=== PATIENT | female | born 1940 | race Asian ===

== ENCOUNTER → 2018-01-06 | Outpatient (CLI) | payer OTHER ==
[~2018-01-06] VITALS: Ht 152.4 cm; Wt 58.2 kg
[~2018-01-06] MED LIST: ASPIR 8181 MG PO; ATENOLOL 25 MG25 M1 PO; FISH OIL 1,001000 M2 PO; FOSAMAX 70 MG T70 MG PO; LINZESS290 MCG PO; LIPITOR80 MG PO; MULTIVITAMINS PO; NORVASC5 MG PO; PRINIVIL40 MG PO; TUMS PO; TYLENOL EXTRA500 MG PO; VITAMIN D1000 UNI1 PO
--- NOTE | ~2018-01-06 | HPC ---
[facility] [address] [address] PAIN MANAGEMENT CONSULTATION Name: GEORGIANA GONZALEZ AE Room #: REG [facility] [id number] Admission: 01/06/18 Attend Phys: Angel Amos DO Discharge: Date of : 38 Report #: [id number] THIS REPORT FOR: //name// CC: Angel Mclaughlin DATE OF SERVICE: 01/06/2018 REFERRING PHYSICIAN: Nurse practitionerVaishnavi. CHIEF COMPLAINT: Low back pain, bilateral buttock and posterolateral thigh pain. HISTORY OF PRESENT ILLNESS: As you know, the patient is a 77-year-old female who reports longstanding history of low back pain has progressively worsened over a period of years. She indicates pain began about 6 years ago, was tolerable and treated with umpd-uix-rioeeum medications and decreasing activity. She states that over the past 3 months starting in September 2017, her pain become more intense. She sought evaluation through her primary care physician who referred the patient to Orthopedics. She saw Dr. Joe Salomon for evaluation. It was determined that her symptoms were likely due to lumbar radiculopathy. She was sent for MRI imaging and findings were such, the patient was then referred to Dr. Mills's office for evaluation for possible surgical intervention. The patient was seen by nurse practitioner, Lyubov Marte on 12/22/2017 as a referral from Dr. Joe Salomon. They reviewed the patient's case and determined that she does have lumbar radiculopathy secondary to progressively worsening spinal stenosis. She was referred at that point to our clinic to trial a lumbar epidural injections under fluoroscopic guidance and to address other potential treatment options for the findings of her MRI, which shows L2-L3 compression fractures that are well healed but do have retropulsion in the posterior portion on the L2 level causing moderate spinal stenosis and also noted a grade 1 spondylolisthesis of L4 and L5 with severe apophyseal joint disease causing moderate central canal stenosis. The patient was deemed a nonsurgical candidate at this time as they request the patient trial more conservative treatment options. The patient today reports the pain is constant, describes pain as aching, throbbing with intermittent numbness and tingling. Places current pain score 10/10, daily average at 10/10, worst pain has been is 10/10. The patient states the pain is exacerbated with recent physical therapy. The pain has been improved with ibuprofen but has recently been changed over to Aleve due to concerns of bleeding issues that is being evaluated by GI. She has been referred to our service to discuss potential treatment options for lumbar radicular symptoms secondary [place] [address] PAIN MANAGEMENT CONSULTATION Name: GEORGIANA GONZALEZ AE Room #: REG NAYE Forte#: [id number] Admission: 01/06/18 Attend Phys: Angel Amos DO Discharge: Date of : 38 Report #: [id number] PAST MEDICAL HISTORY: 1. Bilateral hip pain. 2. Hypertension. 3. Chronic anemia. 4. Osteoarthritis. 5. Osteoporosis. 6. Coronary artery disease, status post stenting. PAST SURGICAL HISTORY: 1. Cardiac stents. 2. Thyroid surgery. 3. Facelift. SOCIAL HISTORY: The patient denies tobacco use. She denies IV or illicit drug use. She is working as a hairdresser. She is not receiving workmen's compensation. She is accompanied by a family friend, present in room today. She is not in litigation in regards to her pain. REVIEW OF SYSTEMS: Positive only for eye disease, wearing corrective eyewear, blurred and double vision; constipation; rectal bleeding; nocturia and low back pain. All other review of systems negative per 12-point review of systems other than those listed in history of present illness. PAIN SCORE: Pain impact score 65/70 indicating near complete interference of daily activities secondary to pain. ALLERGIES: No known drug allergies. CURRENT MEDICATIONS: Linzess 290 mcg once a day, acetaminophen 500 mg 3 times a day, omega-3 fish oil 1 tab per day, aspirin 81 mg per day, multivitamin 1 tab per day, cholecalciferol 1000 units per day, calcium carbonate 500 mg 2 tabs per day, alendronate 70 mg once a week, atorvastatin 80 mg per day, lisinopril 40 mg per day, atenolol 25 mg per day and Norvasc 5 mg per day. IMAGING DATA: MRI lumbar spine obtained on 12/02/2017 shows L2 vertebral compression fracture with retropulsion into the anterior portion of the cord causing a moderate spinal stenosis. There is a noted compression fracture at L3 with no retropulsion with marked superior changes, well-healed at L4-L5. There is grade 1 spondylolisthesis with severe apophyseal joint disease, moderate central canal stenosis. PHYSICAL EXAMINATION: VITAL SIGNS: Blood pressure 170/67, pulse 59 and respiratory rate 16 and unlabored. The patient is 100% on room air. Height 5 feet tall, weight 128.4 pounds and BMI calculated 25.1. [address] [address] PAIN MANAGEMENT CONSULTATION Name: GEORGIANA GONZALEZ AE Room #: ZACKARY Forte#: [id number] Admission: 01/06/18 Attend Phys: Angel Amos DO Discharge: Date of : 38 Report #: [id number] GENERAL: Well-developed, well-nourished, well-hydrated 77-year-old female appearing her stated age, placing current pain score 10/10. HEENT: Normocephalic and atraumatic. Pupils equal, round and reactive to light. Extraocular muscles are intact. Sclerae nonicteric without injection. NEUROLOGICAL: Cranial nerves 2 through 12 grossly intact. Speech is fluent. The patient deemed a fair historian. LUNGS: Clear. No wheeze, rhonchi or rales. CARDIOVASCULAR: Regular. No appreciable gallop and no rub. ABDOMEN: Soft, nontender and nondistended. Normoactive bowel sounds. EXTREMITIES: Show no clubbing, no cyanosis and no edema. MUSCULOSKELETAL: Lower extremity strength appears equal and symmetrical, 5/5. She has intact to light touch from L1 through S2 dermatomes. Seated straight leg raising negative. Supine straight leg raising positive. Tommie's test negative. Modified Gaenslen's positive for axial low back pain. Ankle clonus negative. Babinski is negative. There is some palpatory tenderness over the facet joints of the lower lumbar spine and SI joints bilaterally with deep palpation. Lumbar provocation testing is met with mild increase in pain, axial in nature. ASSESSMENT: 1. Symptomatic lumbar radiculopathy. 2. Spinal stenosis of lumbar spine. 3. Displacement of lumbar intervertebral disk with radiculopathy. 4. Lumbosacral spondylosis with radiculopathy. 5. Lumbar degeneration. 6. Chronic intractable pain. PLAN: 1. The patient has been referred to our service by [facility], Lyubov Marte, nurse practitioner to evaluate the patient for suspected lumbar radiculopathy secondary to spinal stenosis. The patient and I discussed at length the diagnosis of lumbar radiculopathy. We discussed spinal stenosis and we correlated her findings to her MRI. This conversation took 22 minutes of time. After this discussion of the findings of the MRI and how they correlate with her physical exam and the findings noted from the Neurosurgery team, we discussed treatment options we have available from a pain management standpoint. The following was discussed with the patient today. We discussed physical therapy, stretching exercises and core strengthening. The patient states she has been in physical therapy and had to discontinue due to increased pain. Certainly, this can be adjusted to address her ongoing pain issues and minimize the pain during physical therapy. We discussed medication management with addition of a neuropathic pain medication and rotation of nonsteroidal anti-inflammatories as we await GI workup for chronic anemia and guaiac positive stools. We discussed epidural injections for which the patient was referred to our clinic to address lumbar radicular symptoms. We discussed [facility] [address] [place] [address] PAIN MANAGEMENT CONSULTATION Name: GEORGIANA GONZALEZ Room #: REG CL Reanna#: [id number] Admission: 01/06/18 Attend Phys: Angel Amos DO Discharge: Date of : 38 Report #: [id number] spinal cord stimulator therapy and surgical options. After reviewing the risks and benefits of all the proposed treatment options, the patient chose to undergo lumbar epidural injection under fluoroscopic guidance. The patient was advised risks and benefits of a lumbar epidural injection. These risks include but are not necessarily limited to bleeding, bruising, infection, worsening pain, no relief of pain, also risk of temporary or permanent muscle weakness, temporary or permanent nerve damage, possible paralysis and . The patient states understood and wished to proceed. 2. No medication changes made at today's visit. The patient will continue current medical therapy as previously prescribed. 3. We will see the patient back in followup visit in approximately 3 weeks. At that time, review the efficacy of today's epidural injection and determine if next in the series of epidural injection might be recommended. 4. We wish to thank Lyubov Marte, nurse practitioner for the referral of the patient to our clinic. We will keep you apprised of her response to treatment as we address lumbar radicular symptoms. Again, we wish to thank you for the opportunity to see this patient in consultation. PROCEDURE NOTE DESCRIPTION OF PROCEDURE: L5-S1 right paramedian epidural steroid injection under fluoroscopic guidance. This is the first procedure of the first series that the patient is undergoing. After obtaining written consent, the patient was taken back to the fluoroscopy suite, placed in a prone position with pillow under the abdomen to decrease lumbar lordosis. The skin overlying the lumbosacral area was then prepped and draped in aseptic fashion. The L5-S1 vertebral interspace was then identified by AP fluoroscopy. The skin and subcutaneous tissue overlying the target site of injection was anesthetized with 3 mL 1% lidocaine. A 20-gauge 3-1/2 inch Tuohy needle was then advanced under fluoroscopic guidance towards the epidural space using a right paramedian approach. The epidural space was identified using loss of resistance to air technique. After negative aspiration for heme or cerebrospinal fluid, a total of 0.6 mL of Omnipaque was injected. A lumbar epidurogram was confirmed using both AP and lateral fluoroscopy. After negative aspiration for heme or cerebrospinal fluid, 5 mL of a solution containing 2 mL 40 mg per mL, 80 mg total triamcinolone, 3 mL lidocaine 1% was injected in increments. Contrast spread was noted posterior epidural space. The needle was then retracted approximately half way and needle tract flushed with 1 mL of 1% lidocaine. Needle was then removed. There were no apparent sensory or motor deficits in the lower extremity following the procedure. A sterile bandage was placed over the injection site. [address] [address] PAIN MANAGEMENT CONSULTATION Name: GEORGIANA GONZALEZ AE Room #: REG [facility]ITALR[facility]zRamez#: [id number] Admission: 01/06/18 Attend Phys: Angel Amos DO Discharge: Date of : 38 Report #: [id number] The heart rate, pulse, oximetry and blood pressure were continuously monitored after the procedure. There were no apparent complications. The patient tolerated the procedure well and was carefully escorted to the recovery room in stable condition. There were no apparent complications. After meeting discharge criteria, the patient was then discharged home. <ELECTRONICALLY SIGNED> By: Angel Amos DO 01/07/18 1207 0921 120 Angel Amos DO /nt
[2018-01-06 13:44] VITALS: BP 170/67
== END | disposition home or self-care (01) ==
LOC: PAIN 08:46
DX: M51.16 Intervertebral disc disorders with radiculopathy, lumbar region (principal); M48.061 Spinal stenosis, lumbar region without neurogenic claudication; M47.27 Other spondylosis with radiculopathy, lumbosacral region; G89.29 Other chronic pain; I10 Essential (primary) hypertension; I25.10 Atherosclerotic heart disease of native coronary artery without angina pectoris; D50.0 Iron deficiency anemia secondary to blood loss (chronic); M19.90 Unspecified osteoarthritis, unspecified site; M81.0 Age-related osteoporosis without current pathological fracture; Z95.5 Presence of coronary angioplasty implant and graft; Z98.890 Other specified postprocedural states; Z79.899 Other long term (current) drug therapy; Z79.82 Long term (current) use of aspirin

== ENCOUNTER → 2018-01-19 | Outpatient (CLI) | payer OTHER ==
[~2018-01-19] VITALS: Ht 152.4 cm; Wt 56.7 kg
[~2018-01-19] MED LIST changes: +ALEVE220 MG PO; +ONE-A-DAY WOMENS PO
--- NOTE | ~2018-01-19 | PATH ---
[facility] [address] [address] PATHOLOGY RPT PROCEDURE Name: GEORGIANA ANDERSEN Room #: REG [facility] DEVENSQue.#: [id number] Admission: 01/19/18 Date of : 38 Discharge: Report #: [id number] Path Case #: [id number] [facility] Accession Number: [id number] . 01 Material submitted: . PART A: BX OF GASTRITIS PART B: BX OF DISTAL ESOPHAGUS . 01 Clinical history: . Anemia, blood in stool, esophagitis, gastritis, history of heme positive stool, hiatal hernia, history H. pylori . 02 Diagnosis: A. Gastric mucosa, gastritis, rule out H. pylori, endoscopic biopsy: - Mild chronic gastritis with features of reactive gastropathy. - Negative for intestinal metaplasia or atrophy. - Negative for Helicobacter pylori (properly controlled immunohistochemical stain performed). . B. Gastroesophageal mucosa, distal esophagus, rule out Busch's, endoscopic biopsy: - Gastric cardia-type mucosa with moderate chronic inflammation and reactive changes; negative for intestinal metaplasia or dysplasia. - Squamous mucosa with mild esophagitis. . (IUV:patient experience coordinator; 01/20/2018) MBR/01/20/2018 . 02 Electronically signed: . Sarah Lopez MD, Pathologist NPI- [id number] . 01 Gross description: . A. The specimen is received in formalin, labeled "Georgiana Andersen Ae, BX gastritis, rule out H. pylori", are three fragments of jin soft tissue 0.2 cm, 0.4 cm and a 0.6 cm in greatest dimension, entirely submitted in A1. . B. The specimen is received in formalin, labeled "Georgiana Andersen Ae, BX of distal esophagus, rule out Busch's", is a jin-tony, soft tissue, 0.5 cm in greatest dimension, entirely submitted in B1. (SWS; 01/19/2018) SHS/SHS . 02 Pathologist provided ICD-10: K29.50, K20.9 . 02 CPT . [address] [address] PATHOLOGY RPT PROCEDURE Name: GEORGIANA ANDERSEN AE Room #: REG [facility] BhavinRamez#: [id number] Admission: 01/19/18 Date of : 38 Discharge: Report #: [id number] Path Case #: [id number] Specimen Comment: A courtesy copy of this report has been sent to Specimen Comment: [phone], , . Specimen Comment: Report sent to ,DR DAVALOS / DR BALL Performed at: [address], [place] [id number] MD Иван Dunn MD Phone: [phone] Performed at: [address] [id number] MD Sarah Lopez MD Phone: [phone]
--- NOTE | ~2018-01-19 | P ---
[facility] [place] [address] [place] [address] PROCEDURE REPORT Name: GEORGIANA GONZALEZ AE Room #: REG [facility]ERV[facility]#: [id number] Admission: 01/19/18 Attend Phys: Yonathan Greenwood Discharge: Date of : 38 Report #: [id number] THIS REPORT FOR: //name// CC: Yonathan Mclaughlin DATE OF SERVICE: 01/19/2018 PROCEDURE PERFORMED: Upper endoscopy with biopsies. HISTORY OF PRESENT ILLNESS: The patient is a 77-year-old female with a history of anemia who was seen in the office 12/04/2017. Hemoglobin in November was 10.9. She denies any obvious bright red blood per rectum. She underwent an EGD and colonoscopy by myself in 2015. Gastritis was noted and was H. pylori positive. She was treated with Prevpac. She also had two benign polyps removed on colonoscopy and diverticulosis. She does have intermittent heartburn symptoms. She also has chronic constipation and is currently taking Linzess and MiraLax with better control. She had been taking Motrin on a regular basis. She denies any dysphagia or odynophagia. We proceeded with Hemoccult testing of her stools, which 2/3 were positive. Plan is for upper endoscopy. DESCRIPTION OF PROCEDURE: The risks and benefits of the procedure were explained to the patient, those risks including but not limited to bleeding, perforation, the risk of sedation. She understood these risks and gave informed consent. Sedation was given using propofol per Anesthesia. Next, using a standard Olympus upper endoscope, the scope was placed in the patient's mouth and advanced under direct vision through the esophagus, stomach and into the second portion of the duodenum. The upper and mid esophagus was normal in appearance. At the GE junction, there was evidence of grade B erosive esophagitis with possible short segment of Busch's was noted. Biopsies were obtained. Upon entering the stomach, a small hiatal hernia was noted. Overall, the gastric mucosa was normal in the fundus and body. There was a mild gastritis with several erosions in the gastric antrum. No evidence of bleeding. Biopsies were obtained due to gastritis and a previous history of H. pylori. The pylorus was normal and patent. The duodenal bulb, first and second portion were all normal. The scope was then withdrawn and the procedure terminated. The patient tolerated the procedure well. IMPRESSION: 1. Grade B erosive esophagitis. 2. 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 3. Small hiatal hernia. 4. Gastritis with gastric erosions. No evidence of bleeding. [address] [address] PROCEDURE REPORT Name: GEORGIANA GONZALEZ AE Room #: REG [facility] Reanna#: [id number] Admission: 01/19/18 Attend Phys: Yonathan Greenwood Discharge: Date of : 38 Report #: [id number] RECOMMENDATIONS: 1. Await biopsy results. 2. Recommend daily PPI therapy. 3. Continue to monitor hemoglobin. If anemia does not improve after PPI therapy, consider M2 capsule for further evaluation of the small bowel. Thank you for allowing me to participate in her care. <ELECTRONICALLY SIGNED> By: Yonathan Gandhi MD 01/20/18 1139 1017 1742 Yonathan Gandhi MD /nt
== END | disposition home or self-care (01) ==
LOC: GI 07:20
DX: K29.50 Unspecified chronic gastritis without bleeding (principal); K22.10 Ulcer of esophagus without bleeding; K44.9 Diaphragmatic hernia without obstruction or gangrene; I10 Essential (primary) hypertension; E78.5 Hyperlipidemia, unspecified; D64.9 Anemia, unspecified; Z86.010 Personal history of colon polyps; Z87.19 Personal history of other diseases of the digestive system; Z95.5 Presence of coronary angioplasty implant and graft; Z86.19 Personal history of other infectious and parasitic diseases; K21.9 Gastro-esophageal reflux disease without esophagitis; Z98.41 Cataract extraction status, right eye; Z98.890 Other specified postprocedural states; Z79.899 Other long term (current) drug therapy; Z79.82 Long term (current) use of aspirin
CPT/HCPCS: 62110; 62900

== ENCOUNTER → 2018-02-17 | Outpatient (CLI) | payer OTHER ==
[~2018-02-17] VITALS: Ht 172.7 cm; Wt 59.1 kg
--- NOTE | ~2018-02-17 | HPC ---
[facility] [address] [place] [address] PAIN MANAGEMENT CONSULTATION Name: GEORGIANA GONZALEZ AE Room #: REG [facility]ENTERRamez.#: [id number] Admission: 02/17/18 Attend Phys: Angel Amos DO Discharge: Date of : 38 Report #: [id number] THIS REPORT FOR: //name// CC: Angel Mclaughlin MD DATE OF SERVICE: 02/17/2018 CHIEF COMPLAINT: Low back pain, bilateral lower extremity pain with paresthesias. HISTORY OF PRESENT ILLNESS: As you know, the patient is a very pleasant 78-year-old female who returns today in followup visit to undergo next in the series of lumbar epidural injections under fluoroscopic guidance to address recurrent pain of a level of 3/10. The patient indicates when pain is present, it is aching, throbbing, numbness and tingling in its presentation, exacerbated with standing, walking, improves with Aleve orgv-fxk-cbavsuy medication and a recent epidural injection. She reports near 100% improvement in overall pain with previous epidural injection. She returns today in followup visit to undergo next in the series of epidural injections to build on success of previous intervention to address recurrent pain. She denies injury or trauma or any changes in medical history since our last visit. ALLERGIES: No known drug allergies. CURRENT MEDICATIONS: See chart. SOCIAL HISTORY: The patient denies tobacco use. Denies IV or illicit drug use. 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 IMAGING: No new imaging available. PHYSICAL EXAMINATION: VITAL SIGNS: Blood pressure 170/64, pulse is 58, respiratory rate 16 and unlabored. The patient is 100% on room air. Height 5 feet tall, weight 128 pounds, BMI calculated 25.0. GENERAL: Well-developed, well-nourished, well-hydrated 78-year-old female appearing her stated age, placing current pain score up to 3/10. HEENT: Normocephalic, atraumatic. Pupils equal, round, reactive to light. EXTREMITIES: Show no clubbing, no cyanosis, no edema. MUSCULOSKELETAL: Lower extremity strength appears symmetrical again today 5/5, intact to light touch from L1 through S2 dermatomes. Seated straight leg raising negative. Supine straight leg raising positive. Tommie's test negative. [address] [address] PAIN MANAGEMENT CONSULTATION Name: GEORGIANA GONZALEZ Room #: REG BENJAMINDayne Forte#: [id number] Admission: 02/17/18 Attend Phys: Angel Amos DO Discharge: Date of : 38 Report #: [id number] ASSESSMENT: 1. Symptomatic lumbar radiculopathy. 2. Spinal stenosis of the lumbar spine. 3. Displacement of lumbar intervertebral disk with radiculopathy. 4. Lumbosacral spondylosis with radiculopathy. 5. Lumbar degeneration. 6. Chronic intractable pain. PLAN: 1. The patient has returned today in followup visit indicating 100% improvement in overall pain with the epidural injection provided at last visit. Unfortunately, the patient has had a slow and progressive return of symptoms. She returns today in followup visit to undergo next in the series of lumbar epidural injections in hopes of improving pain. She has been advised risks and benefits of procedure, states she understood and wished to proceed. 2. No medication changes made at today's visit. The patient will continue current medical therapy as previously prescribed. 3. We will see the patient back in followup visit on an as needed basis for the third in the series of epidural injections. By: [id number] Angel Amos DO /nt
--- NOTE | ~2018-02-17 | P ---
[facility] [place] [address] [place] [address] PROCEDURE REPORT Name: GEORGIANA GONZALEZ RJ Room #: REG [facility].#: [id number] Admission: 02/17/18 Attend Phys: Angel Amos DO Discharge: Date of : 38 Report #: [id number] THIS REPORT FOR: //name// CC: Angel Mclaughlin MD DATE OF SERVICE: 02/17/2018 DESCRIPTION OF PROCEDURE: L5-S1 right paramedian epidural steroid injection under fluoroscopic guidance. This is the second procedure of the first series that the patient is undergoing. After obtaining written consent, the patient was taken back to the fluoroscopy suite, placed in a prone position with pillow under the abdomen to decrease lumbar lordosis. The skin overlying the lumbosacral area was then prepped and draped in aseptic fashion. The L5-S1 vertebral interspace was then identified by AP fluoroscopy. The skin and subcutaneous tissue overlying the target site of injection was anesthetized with 3 mL 1% lidocaine. A 20-gauge 3-1/2-inch Tuohy needle was then advanced under fluoroscopic guidance towards the epidural space using a right paramedian approach. The epidural space was identified using loss of resistance to air technique. After negative aspiration for heme or cerebrospinal fluid, a total of 0.3 mL of Omnipaque was injected. A lumbar epidurogram was confirmed using both AP and lateral fluoroscopy. After negative aspiration for heme or cerebrospinal fluid, 5 mL of a solution containing 2 mL 40 mg per mL, 80 mg total triamcinolone, 3 mL lidocaine 1% was injected in increments. Contrast spread was noted posterior epidural space. The needle was then retracted approximately half way and needle tract flushed with 1 mL of 1% lidocaine. Needle was then removed. There were no apparent sensory or motor deficits in the lower extremity following the procedure. A sterile bandage was placed over the injection site. The heart rate, pulse, oximetry and blood pressure were continuously monitored after the procedure. There were no apparent complications. The patient tolerated the procedure well and was carefully escorted to the recovery room in stable condition. There were no apparent complications. After meeting discharge criteria, the patient was then discharged home. By: [id number] Angel Amos DO /nt
[2018-02-17 10:16] VITALS: BP 178/64
--- NOTE | 2018-02-17 10:32 | NUR ---
Pain Clinic Assessment: 1. History of Osteoarthritis: YES History of Rheumatoid Arthritis: 2. Height: 5 ft. 8 in. 172.7 cm. Weight: 130.4 lb. oz. 59.149 kg. Patient's BMI: 19.8 3. Vital Signs: BP: 178/64 Pulse: 58 Resp: 16 Temp: 02 Sat: 100 ECG Mon: 4. Pain Intensity: 0 5. Fall Risk: Dizziness: N Needs help standing or walking: N Fallen in the last 3 months: N Fall risk comments: 6. Patient on Blood Thinner: None 7. History of Hypertension: Y 8. Opioid Therapy greater than 6 weeks: N Opiate Contract Signed: 9. Risk Assessment Tool Provided: 10. Functional Assessment Tool: 11. Recreational Drug Use: Never Drug Type: Tobacco Use: Never Smoker Tobacco Type: Amount or Packs/day: How Many Years: Alcohol Use: No Frequency: Quant:
== END | disposition home or self-care (01) ==
LOC: PAIN 07:26
DX: M51.16 Intervertebral disc disorders with radiculopathy, lumbar region (principal); M48.061 Spinal stenosis, lumbar region without neurogenic claudication; M47.27 Other spondylosis with radiculopathy, lumbosacral region; G89.29 Other chronic pain; Z79.82 Long term (current) use of aspirin; Z79.899 Other long term (current) drug therapy

== ENCOUNTER → 2018-06-30 | Outpatient (CLI) | payer OTHER ==
[~2018-06-30] VITALS: Ht 157.5 cm; Wt 54.9 kg
[~2018-06-30] MED LIST changes: +CYMBALTA30 MG PO; +OMEPRAZOLE 20 M20 M1 PO; +TYLENOL PM EX-1 EACH PO
--- NOTE | ~2018-06-30 | HPC ---
[facility] [address] [place] [address] PAIN MANAGEMENT CONSULTATION Name: GEORGIANA GONZALEZ AE [id number] Admission: 06/30/18 ������������������ Attend Phys: Angel Amos DO Discharge: ������������������ Date of : 38 Report #: [id number] THIS REPORT FOR: //name// CC: GEORGE Trejo MD DATE OF SERVICE: 06/30/2018 REFERRING PHYSICIAN: Dr. Maxime Mills and nurse practitioner, Zahida Marte CHIEF COMPLAINT: Low back pain, right lower extremity pain and left lower extremity pain with paresthesias. HISTORY OF PRESENT ILLNESS: As you know, the patient is an 78-year-old female with long-standing history of low back pain progressively worsened over the years. She indicates pain has been present for almost 7 years now. We initially saw the patient in consultation per the request of Neurosurgery to address lumbar radicular symptoms. She has undergone intermittent epidural injections with good efficacy. The patient returns today in followup visit preauthorization process to undergo next in the series of epidural injections. The patient understands that her third democrat payer requires the authorization before she can undergo the procedure. She is placing pain score 10/10. Indicates pain is pressure, pinching, numbness and tingling when describing symptoms; standing and walking tends to exacerbate symptoms; medications, heat, cold compresses and epidural injections tend to improve pain. The patient indicates previous epidural injection gave about 60% improvement in overall pain lasting for months. She returns today to begin the authorization process to undergo next in the series of epidural injections. ALLERGIES: No known drug allergies. CURRENT MEDICATIONS: Acetaminophen, multivitamin, duloxetine, omeprazole, naproxen, cholecalciferol, Linzess, docusate sodium, aspirin, amlodipine, atenolol, lisinopril, atorvastatin, alendronate and calcium. SOCIAL HISTORY: The patient denies tobacco, alcohol, IV or illicit drug use. She is retired, retired years ago. She is accompanied by her son present in room today. IMAGING: There is no new imaging available. PQRS: The patient has osteoarthritic changes of the lumbar spine, bilateral hips and bilateral knees. No rheumatoid arthritis. She is placing pain [address] [address] PAIN MANAGEMENT CONSULTATION Name: ANDREERULAORALIAGEORGIANA [id number] Admission: 06/30/18 ������������������ Attend Phys: Angel Amos DO Discharge: ������������������ Date of : 38 Report #: [id number] intensity 11/19, not a fall risk, has not had a fall in last 3 months. She is not on blood thinner. She is treated for hypertension. She is not on any chronic opioids, has a low opioid addiction potential, placing pain impact at 60/70 indicating near complete interference of daily activities secondary to pain. PHYSICAL EXAMINATION: VITAL SIGNS: Blood pressure 156/76, pulse is 68, respiratory rate 16 and unlabored. The patient is 98% on room air. Height 5 feet 2 inches tall, weight 121 pounds. BMI calculated 22.1. GENERAL: Well-developed, well-nourished, well-hydrated 78-year-old female appearing stated age, placing current pain score 10/10. HEENT: Normocephalic, atraumatic. Pupils are equal, round and reactive to light. EXTREMITIES: Show no clubbing, no cyanosis and no edema. MUSCULOSKELETAL: Lower extremity strength appears symmetrical at 5/5. There is deconditioning noted bilaterally in lower extremities. Seated straight leg raising negative. Supine straight leg raising positive in right. BRAULIO test negative. Modified Gaenslen's positive for axial low back pain. ASSESSMENT: 1. Symptomatic lumbar radiculopathy. 2. Spinal stenosis of the lumbar spine. 3. Displacement of lumbar intervertebral disk with radiculopathy. 4. Lumbosacral spondylosis with radiculopathy. 5. Lumbar degeneration. 6. Chronic intractable pain. PLAN: 1. The patient returns today in followup visit indicating good efficacy with the previous epidural injection and requesting to undergo next in the series. The patient was advised that third democrat payer restrictions require the authorization be obtained before the patient could undergo the next in the series of epidural injections. We will begin the authorization process immediately, contact the patient once we have this authorization to undergo the next in the series of epidural injections in hopes of building on success of previous intervention. 2. We recommend the patient increase her Cymbalta from 30 mg to 60 mg dose. High doses of Cymbalta have been shown to be quite effective for axial back pain and neuropathic pain. New indication for Cymbalta is for chronic back pain. We recommend increasing her dose. I have requested that the patient contact her PCP in regards to addressing the increase in the medication. We will continue the 60 mg dose for the next month. There is a possibility we may need to increase this further to capture neuropathic pain control. [address] [address] PAIN MANAGEMENT CONSULTATION Name: GEORGIANA GONZALEZ AE Room #: REG NAYE Reanna#: [id number] Admission: 06/30/18 ������������������ Attend Phys: Angel Amos DO Discharge: ������������������ Date of : 38 Report #: [id number] 3. We will see the patient back in followup visit once we have achieved authorization to undergo next in the series of lumbar epidural injections. ��������������������������������������������� ���������������������������������������� By: ��������������������������������������������� [id number] Angel Amos DO /nt
[2018-06-30 09:19] VITALS: BP 156/76
--- NOTE | 2018-06-30 09:42 | NUR ---
Pain Clinic Assessment: 1. History of Osteoarthritis: PT STATES IN BACK History of Rheumatoid Arthritis: DENIES 2. Height: 5 ft. 2 in. 157.5 cm. Weight: 121.0 lb. oz. 54.885 kg. Patient's BMI: 22.1 3. Vital Signs: BP: 156/76 Pulse: 68 Resp: 16 Temp: 02 Sat: 98 ECG Mon: 4. Pain Intensity: 10 5. Fall Risk: Dizziness: N Needs help standing or walking: N Fallen in the last 3 months: N Fall risk comments: 6. Patient on Blood Thinner: None 7. History of Hypertension: Y 8. Opioid Therapy greater than 6 weeks: N Opiate Contract Signed: 9. Risk Assessment Tool Provided: 10. Functional Assessment Tool: 11. Recreational Drug Use: Never Drug Type: Tobacco Use: Never Smoker Tobacco Type: Amount or Packs/day: How Many Years: Alcohol Use: No Frequency: Quant:
== END ==
LOC: PAIN 06-09 07:01
DX: M47.27 Other spondylosis with radiculopathy, lumbosacral region (principal); M48.061 Spinal stenosis, lumbar region without neurogenic claudication; M51.16 Intervertebral disc disorders with radiculopathy, lumbar region; G89.4 Chronic pain syndrome; Z79.899 Other long term (current) drug therapy

== ENCOUNTER → 2018-07-01 | Outpatient (CLI) | payer OTHER ==
[~2018-07-01] VITALS: Ht 162.6 cm; Wt 54.9 kg
--- NOTE | ~2018-07-01 | HPC ---
[facility] [place] [address] [address] [place] [address] PAIN MANAGEMENT CONSULTATION Name: GEORGIANA GONZALEZ AE Room #: REG Dayne BhavinChayaRamez#: [id number] Admission: 07/01/18 ������������������ Attend Phys: Angel Amos DO Discharge: ������������������ Date of : 38 Report #: [id number] THIS REPORT FOR: //name// CC: Gene Mclaughlin MD DATE OF SERVICE: 07/01/2018 PRIMARY CARE PHYSICIAN: Laron Mclaughlin MD. CHIEF COMPLAINT: Low back pain, bilateral lower extremity pain with paresthesias. HISTORY OF PRESENT ILLNESS: As you know, the patient is an 78-year-old female who suffers from progressively worsening spinal stenosis leading to lumbar radicular symptoms. She returns today in followup visit having received preauthorization to undergo next in the series of lumbar epidural injections to address lumbar radicular symptoms. The patient is placing pain score again today at 10/10. She describes the pain as pressure, pinching, exacerbated with standing, walking, improves with medications, heat and cold compresses and rest. She returns today requesting this next in the series of epidural injections for which we have obtained authorization. ALLERGIES: No known drug allergies. CURRENT MEDICATIONS: See chart. SOCIAL HISTORY: The patient denies tobacco, alcohol, IV or illicit drug use. She is retired, accompanied by her son, present in room today. IMAGING: No new imaging available. PQRS: The patient has no known osteoarthritic changes of the lumbar spine, bilateral hips and knees. No rheumatoid arthritis. She is placing pain intensity of 10/10. She is not a fall risk, has not had a fall in last 3 months. She is not on blood thinners, not treated for hypertension. She is not on any chronic opioids. Pain impact tool indicates same scores as yesterday, 60/70. PHYSICAL EXAMINATION: VITAL SIGNS: 158/74, pulse is 66, respiratory rate 18, 98% on room air. Height 5 feet 2 inches tall, weight 121 pounds, BMI calculated 22.1. GENERAL: Well-developed, well-nourished, well-hydrated 78-year-old female, [facility] [address] [place] [address] PAIN MANAGEMENT CONSULTATION Name: GEORGIANA GONZALEZ AE Room #: REG [facility].#: [id number] Admission: 07/01/18 ������������������ Attend Phys: Angel Amos DO Discharge: ������������������ Date of : 38 Report #: [id number] appearing stated age, placing current pain score 10/10. HEENT: Normocephalic, atraumatic. Pupils equal, round, reactive to light. EXTREMITIES: Show no clubbing, no cyanosis, no edema. MUSCULOSKELETAL: Seated straight leg raising positive. Supine straight leg raising positive. BRAULIO test negative. Modified Gaenslen's positive for axial low back pain. ASSESSMENT: 1. Symptomatic lumbar radiculopathy. 2. Spinal stenosis of lumbar spine. 3. Displacement of lumbar intervertebral disk with radiculopathy. 4. Lumbosacral spondylosis with radiculopathy. 5. Facet arthropathy of the lumbar spine. 6. Degeneration of lumbar spine. 7. Chronic intractable pain. PLAN: 1. The patient returns today in followup visit to undergo next in the series of epidural injections under fluoroscopic guidance. We have obtained authorization for the patient to undergo the procedure today. She has been advised of risks and benefits of the procedure, states understood and wished to proceed. 2. No medication changes made at today's visit. The patient will continue the 60 mg, Cymbalta at this time with potential increases if no significant improvement with today's epidural injection. 3. We will see the patient back in followup visit on an as needed basis for next in a series of epidural injections. PROCEDURE NOTE DESCRIPTION OF PROCEDURE: L5-S1 right paramedian epidural steroid injection under fluoroscopic guidance. After obtaining written consent, the patient was taken back to fluoroscopy suite, placed in prone position with pillow under abdomen to decrease lumbar lordosis. Skin overlying lumbosacral area then prepped and draped in aseptic fashion. The L5-S1 vertebral interspace identified by AP fluoroscopy. Skin and subcutaneous tissue overlying target site of injection was anesthetized with 3 mL of 1% lidocaine. A 20-gauge 3-1/2 inch Tuohy needle advanced under fluoroscopic guidance towards the epidural space using a right paramedian approach. Epidural space identified using loss of resistance to air technique. After negative aspiration for heme or cerebrospinal fluid, 1 mL of Omnipaque injected. Lumbar epidurogram confirmed using both AP and lateral fluoroscopy. After negative aspiration for heme or cerebrospinal fluid, 5 mL of a solution containing 2 mL 40 mg per mL, 80 mg total triamcinolone along with 3 mL of lidocaine 1% were injected slowly. [facility] [address] [place] [address] PAIN MANAGEMENT CONSULTATION Name: GOERGIANA GONZALEZ AE Room #: REG CLDayne Forte#: [id number] Admission: 07/01/18 ������������������ Attend Phys: Angel Amos DO Discharge: ������������������ Date of : 38 Report #: [id number] Needle then retracted fdc, flushed with 1 mL of 1% lidocaine and then removed. Sterile bandage placed over the injection site. No new motor deficits present in the lower extremities following procedure. The patient tolerated procedure well, carefully escorted to recovery room in stable condition. No apparent complication. After meeting discharge criteria, the patient discharged home. ��������������������������������������������� ���������������������������������������� By: ��������������������������������������������� 1127 Angel Amos DO /nt
[2018-07-01 09:49] VITALS: BP 147/74
--- NOTE | 2018-07-01 09:55 | NUR ---
Pain Clinic Assessment: 1. History of Osteoarthritis: PT STATES IN BACK History of Rheumatoid Arthritis: DENIES 2. Height: 5 ft. 4 in. 162.6 cm. Weight: 121.0 lb. oz. 54.885 kg. Patient's BMI: 20.8 3. Vital Signs: BP: 147/74 Pulse: 64 Resp: 16 Temp: 02 Sat: 97 ECG Mon: 4. Pain Intensity: 10 5. Fall Risk: Dizziness: N Needs help standing or walking: N Fallen in the last 3 months: N Fall risk comments: 6. Patient on Blood Thinner: None 7. History of Hypertension: Y 8. Opioid Therapy greater than 6 weeks: N Opiate Contract Signed: 9. Risk Assessment Tool Provided: 10. Functional Assessment Tool: 11. Recreational Drug Use: Never Drug Type: Tobacco Use: Never Smoker Tobacco Type: Amount or Packs/day: How Many Years: Alcohol Use: No Frequency: Quant:
== END | disposition home or self-care (01) ==
LOC: PAIN 06:50
DX: M51.16 Intervertebral disc disorders with radiculopathy, lumbar region (principal); M48.061 Spinal stenosis, lumbar region without neurogenic claudication; M47.27 Other spondylosis with radiculopathy, lumbosacral region; M47.26 Other spondylosis with radiculopathy, lumbar region; G89.29 Other chronic pain; M19.90 Unspecified osteoarthritis, unspecified site; Z79.82 Long term (current) use of aspirin; Z79.899 Other long term (current) drug therapy; Z98.890 Other specified postprocedural states

== ENCOUNTER → 2018-09-09 | Outpatient (CLI) | payer OTHER ==
[~2018-09-09] VITALS: Ht 10.2 cm; Wt 49.9 kg
[~2018-09-09] MED LIST changes: +HYDROCODON-ACE1 EAC7 PO; +NABUMETONE 500500 M2 PO; +NEURONTIN 300300 M1 PO; +TB MEDS
--- NOTE | ~2018-09-09 | HPC ---
[facility] [address] [place] [address] PAIN MANAGEMENT CONSULTATION Name: GEORGIANA GONZALEZ RJ Room #: REG [facility] Francis.#: [id number] Admission: 09/09/18 ������������������ Attend Phys: Angel Amos DO Discharge: ������������������ Date of : 38 Report #: [id number] THIS REPORT FOR: //name// CC: Angel Aguilar DATE OF SERVICE: 09/09/2018 CHIEF COMPLAINT: Low back pain, bilateral lower extremity pain with paresthesias. HISTORY OF PRESENT ILLNESS: As you know, the patient is an 78-year-old female who was planned to undergo surgery with Dr. Maxime Mills when the surgery was canceled due to noted active tuberculosis. She is being treated by the [facility] for active tuberculosis, which precludes her from undergoing surgical decompression that will be ultimately necessary. The patient's son contacted our clinic to have her return to undergo an epidural injection under fluoroscopic guidance, which provided her no improvement at the last visit. She returns today to discuss the possibility of undergoing this injection, even though she received no benefit at the last visit or to discuss options for treatment. She denies injury or trauma that led to symptoms continuing. ALLERGIES: No known drug allergies. CURRENT MEDICATIONS: Nabumetone, gabapentin, hydrocodone and acetaminophen, multivitamin, omeprazole, cholecalciferol, docusate sodium, omega-3 fish oil, aspirin, calcium carbonate, alendronate, atorvastatin, lisinopril, atenolol, and amlodipine. SOCIAL HISTORY: The patient denies tobacco, alcohol, IV or illicit drug use. She is retired, retired years ago, accompanied by her son present in room today. IMAGING: No new imaging available. PQRS: The patient has known arthritic changes of the lumbar spine, bilateral hips and knees. No rheumatoid arthritis. She is placing pain intensity today 10/10. She is a fall risk, has not had a fall in last 3 months. She is not on blood thinners. She is treated for hypertension. Apparently, she is receiving treatment for active tuberculosis. She is not on any chronic opioid. She has a low opioid addiction potential. Pain impact score 70/70, complete interference of daily activities secondary to pain. PHYSICAL EXAMINATION: VITAL SIGNS: Blood pressure 157/76, pulse 88, respiratory rate 18 and unlabored. The patient is 96% on room air. Height 5 feet 4 inches tall, weight 110 pounds, BMI calculated 18.9[place] [address] PAIN MANAGEMENT CONSULTATION Name: GEORGIANA GONZALEZ AE Room #: REG [facility]#: [id number] Admission: 09/09/18 ������������������ Attend Phys: Angel Amos DO Discharge: ������������������ Date of : 38 Report #: [id number] GENERAL: Well-developed, ill-appearing, 78-year-old female, appears stated age, pain is rated 10/10. HEENT: Normocephalic, atraumatic. Pupils equal, round, reactive to light. NEUROLOGIC: Speech is fluent. The patient is wearing a mask due to active tuberculosis. MUSCULOSKELETAL: Seated straight leg raising positive. Supine straight leg raising positive. Tommie's test negative. Modified Gaenslen's positive for axial low back pain. Gait antalgic. ASSESSMENT: 1. Symptomatic lumbar radiculopathy. 2. Spinal stenosis of lumbar spine. 3. Displacement of lumbar intervertebral disk with radiculopathy. 4. Lumbosacral spondylosis with radiculopathy. 5. Facet arthropathy of the lumbar spine. 6. Degeneration of lumbar spine. 7. Chronic intractable pain. PLAN: 1. The patient returns today in followup visit stating pain score 10/10. Previous epidural injection provided no improvement in symptoms. The patient was subsequently then sent back to the referring physician, Dr. Maxime Mills who had planned the patient to undergo surgery. Apparently, she was preparing for surgery when the active tuberculosis infection was noted. She was then canceled from surgery and advised to begin treatment for her active TB. Once this has been treated successfully, then surgery option will be available. The patient's son contacted our clinic stating that she is reporting pain at 10/10 and wanted the next in the series of epidural injections despite the fact that she received no benefit with the first injection. He was advised over the phone. We would not recommend an epidural injection as she received no benefit with the injection and her insurer would not be willing to pay for an injection that provided no benefit. He returns to discuss other options. 2. Recommend the patient get started on a neuropathic pain medication in the form of gabapentin. We will start at one dose p.o. at bedtime 300 mg tablet. She will take this for 3 days, then increase to 2 tabs p.o. at bedtime for 3 days, then 3 tabs p.o. at bedtime for 3 days, then 1 tab in the morning and 3 tabs at night. The patient will watch for side effects of somnolence, decreased mental acuity, disorientation, confusion and mental slowing with use of medication. This is going to be added for the neuropathic component of the pain. She was given #120 tablets, releasing today. 3. The patient was given anti-inflammatory medication in the form of nabumetone 500 mg dose 1 tab p.o. t.i.d. I have given the patient #90 tablets, advised to take this with food, no refills. She is to watch for dyspepsia, worsening of blood pressure, lower extremity edema with its use. If she notes any side effects, discontinue immediately. 4. We will start the patient on hydrocodone 5/325 one tab p.o. q.8 hours p.r.n. [facility] [address] [place] [address] PAIN MANAGEMENT CONSULTATION Name: GEORGIANA GONZALEZ RJ Room #: REG [facility]#: [id number] Admission: 09/09/18 ������������������ Attend Phys: Angel Amos DO Discharge: ������������������ Date of : 38 Report #: [id number] for pain. I have given the patient #90 tablets, advised the patient to take no more than 3 tablets per day. She will watch for side effects of sleepiness, disorientation, confusion, mental slowing and constipation. If she notes any side effects, discontinue immediately. 5. The patient will contact our clinic to advise us of the medications she is currently on. She gave us a list of medications which did not correlate with what she is taking nor did she know what medication she was being provided for the active TB infection and thus we are unable to complete her MAR. She will need to contact us in regards to those medications. 6. The patient will return to see Dr. Mills for the surgical option once she is free of her active TB infection. She is to follow up with Infectious Disease in regards to treatment. ��������������������������������������������� ���������������������������������������� By: ��������������������������������������������� [id number] Angel Amos DO /margarita
[2018-09-09 10:48] VITALS: BP 157/76
--- NOTE | 2018-09-09 11:09 | NUR ---
Pain Clinic Assessment: 1. History of Osteoarthritis: PT STATES IN BACK History of Rheumatoid Arthritis: DENIES 2. Height: 5 ft. 4 in. 162.6 cm. Weight: 110.0 lb. oz. 49.896 kg. Patient's BMI: 18.9 3. Vital Signs: BP: 157/76 Pulse: 88 Resp: 18 Temp: 02 Sat: 96 ECG Mon: 4. Pain Intensity: 10 5. Fall Risk: Dizziness: N Needs help standing or walking: N Fallen in the last 3 months: N Fall risk comments: 6. Patient on Blood Thinner: None 7. History of Hypertension: Y 8. Opioid Therapy greater than 6 weeks: N Opiate Contract Signed: 9. Risk Assessment Tool Provided: 10. Functional Assessment Tool: 11. Recreational Drug Use: Never Drug Type: Tobacco Use: Never Smoker Tobacco Type: Amount or Packs/day: How Many Years: Alcohol Use: No Frequency: Quant:
== END ==
LOC: PAIN 06:49
DX: M47.27 Other spondylosis with radiculopathy, lumbosacral region (principal); M48.061 Spinal stenosis, lumbar region without neurogenic claudication; M51.16 Intervertebral disc disorders with radiculopathy, lumbar region; M12.88 Other specific arthropathies, not elsewhere classified, other specified site; G89.4 Chronic pain syndrome; Z79.899 Other long term (current) drug therapy; Z79.82 Long term (current) use of aspirin

== ENCOUNTER → 2019-07-07 | Outpatient (CLI) | payer OTHER | LOC: SJCVC 13:59 | PROVIDERS: ATTEND Internal Medicine Cardiovascular Disease | DX: R94.31 Abnormal electrocardiogram [ECG] [EKG] (principal); I25.10 Atherosclerotic heart disease of native coronary artery without angina pectoris; I10 Essential (primary) hypertension; E78.00 Pure hypercholesterolemia, unspecified; I48.91 Unspecified atrial fibrillation; Z79.899 Other long term (current) drug therapy ==

== ENCOUNTER → 2019-11-08 | Outpatient (CLI) | payer OTHER | LOC: SJCVCIMAG 08:51 | PROVIDERS: ATTEND Internal Medicine Cardiovascular Disease | DX: I08.8 Other rheumatic multiple valve diseases (principal); I11.9 Hypertensive heart disease without heart failure; R94.31 Abnormal electrocardiogram [ECG] [EKG]; I25.10 Atherosclerotic heart disease of native coronary artery without angina pectoris; E78.00 Pure hypercholesterolemia, unspecified; I48.91 Unspecified atrial fibrillation; Z79.899 Other long term (current) drug therapy ==

== ENCOUNTER → 2020-05-10 | Outpatient (CLI) | payer OTHER | LOC: SJCVC 15:31 | PROVIDERS: ATTEND Internal Medicine Cardiovascular Disease | DX: R94.31 Abnormal electrocardiogram [ECG] [EKG] (principal); I25.10 Atherosclerotic heart disease of native coronary artery without angina pectoris; I10 Essential (primary) hypertension; I48.91 Unspecified atrial fibrillation; E78.00 Pure hypercholesterolemia, unspecified; E78.5 Hyperlipidemia, unspecified; R06.00 Dyspnea, unspecified; Z98.61 Coronary angioplasty status; Z79.82 Long term (current) use of aspirin; Z79.899 Other long term (current) drug therapy ==

== ENCOUNTER → 2020-11-01 | Outpatient (CLI) | payer OTHER | LOC: SJCVCIMAG 07:35 | PROVIDERS: ATTEND Internal Medicine Cardiovascular Disease | DX: I25.10 Atherosclerotic heart disease of native coronary artery without angina pectoris (principal); I10 Essential (primary) hypertension; I48.91 Unspecified atrial fibrillation; E78.00 Pure hypercholesterolemia, unspecified; E78.5 Hyperlipidemia, unspecified; Z79.82 Long term (current) use of aspirin; Z79.899 Other long term (current) drug therapy ==

== ENCOUNTER → 2020-12-13 | Outpatient (CLI) | payer OTHER | LOC: SJCVC 15:21 | PROVIDERS: ATTEND Internal Medicine Cardiovascular Disease | DX: E78.00 Pure hypercholesterolemia, unspecified (principal) ==

== ENCOUNTER → 2021-01-23 | Outpatient (CLI) | payer OTHER | LOC: SJCVC 11:39 | PROVIDERS: ATTEND Internal Medicine Cardiovascular Disease | DX: R74.8 Abnormal levels of other serum enzymes (principal); I25.10 Atherosclerotic heart disease of native coronary artery without angina pectoris; I48.91 Unspecified atrial fibrillation; E78.5 Hyperlipidemia, unspecified; I10 Essential (primary) hypertension; Z79.82 Long term (current) use of aspirin; Z79.899 Other long term (current) drug therapy; Z88.8 Allergy status to other drugs, medicaments and biological substances ==